=== PATIENT | male | born 1980 | race Caucasian/White ===

== ENCOUNTER 2017-09-27 14:24 | Inpatient (IN) | payer OTHER ==
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
[2017-09-27] MEDS ORDERED: LORazepam 2 MG/ML INJ IVP ONE (14:42)
[2017-09-27] MEDS ORDERED: LORazepam 2 MG/ML INJ ONE (14:42)
--- NOTE | 2017-09-27 15:34 | ASMTCAGE ---
CAGE Do you feel you ought to Answers: No cut down on your drinking or drug use? Do people annoy you by Answers: No criticizing your drinking or drug use? Do you feel guilty about Answers: No your drinking or drug use? 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 Additional Comments Pt reports only drinking "an occasional beer," pt denies marijuana and/or recreational drug use. Date Signed: 09/27/2017 03:33 PM Electronically Signed By:Janice Wyatt RN
[2017-09-27] MEDS ORDERED: fentaNYL 100 MCG/2 ML INJ IVP ONE (15:36)
[2017-09-27] MEDS ORDERED: fentaNYL 100 MCG/2 ML INJ ONE (15:36)
[2017-09-27] MEDS ORDERED: NS 500 ML IV ONE (15:56)
[2017-09-27] MEDS ORDERED: ONDANSETRON 4 MG/2 ML VIAL IVP ONE (15:56)
[2017-09-27 17:15] LABS: PLATELET COUNT 286 10^3/uL (150-400)
[2017-09-27 17:23] LABS: INR 1.11 (0.83-1.16); PROTIME(PATIENT) 14.5 SEC (12.0-15.0)
[2017-09-27] MEDS: HYDROmorphONE/DILAUDID 2 MG/ML INJ IVP ONE ×2 (17:40→20:03)
[2017-09-27] MEDS ORDERED: HYDROmorphONE/DILAUDID 1 MG/ML INJ IVP PRN (17:52)
[2017-09-27] MEDS ORDERED: ONDANSETRON DISINTEGRATING 4 MG TAB PO PRN (17:52)
[2017-09-27] MEDS ORDERED: ceFAZolin 2 GM in NS 100 ML IV ONE (17:56)
[2017-09-27] MEDS ORDERED: methylPREDNISolone SOD SUCC 125 MG/2 ML VIAL IVP ONE (18:26)
[2017-09-27] MEDS ORDERED: GABAPENTIN 300 MG CAP ONE (18:36)
[2017-09-27] MEDS: GABAPENTIN 300 MG CAP PO SCH ×2 (18:37→23:07)
[2017-09-27] MEDS: HYDROCODONE/APAP 5/325 TAB PO PRN (18:44)
[2017-09-27] MEDS ORDERED: ceFAZolin 2 GM/SWFI 2 GM/20 ML SYR IVP ONE (18:45)
[2017-09-27] MEDS ORDERED: DIAZEPAM 5 MG/ML 1 ML SYR ONE (19:58)
[2017-09-27] MEDS ORDERED: HYDROmorphONE/DILAUDID 2 MG/ML INJ ONE ×2 (19:58→21:21)
[2017-09-27] MEDS ORDERED: DIAZEPAM 5 MG/ML 1 ML SYR IVP ONE (20:01)
[2017-09-27] MEDS ORDERED: HYDROmorphONE/DILAUDID 1 MG/ML INJ IVP ONE ×2 (20:01→22:00)
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
[2017-09-27] MEDS ORDERED: HYDROmorphONE/DILAUDID 2 MG/ML INJ IVP ONE ×2 (22:15→22:30)
[2017-09-27] MEDS: oxyCODONE IR 5 MG TAB PO PRN (23:07)
[2017-09-27] MEDS: DIAZEPAM 5 MG TAB PO PRN (23:07)
[2017-09-27] MEDS: BACITRACIN ZINC 14.2 GM OINTTUBE TP SCH (23:07)
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
[2017-09-28] MEDS: HYDROCODONE/APAP 5/325 TAB PO PRN ×2 (00:32→07:35)
[2017-09-28] MEDS: oxyCODONE IR 5 MG TAB PO PRN ×7 (02:47→22:15)
[2017-09-28] MEDS: DIAZEPAM 5 MG TAB PO PRN ×5 (02:47→22:15)
[2017-09-28] MEDS: HYDROmorphone HCL/NS 0.5 MG/ML SYR IVP PRN ×3 (02:52→14:09)
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
[2017-09-28] MEDS: GABAPENTIN 300 MG CAP PO SCH ×3 (07:35→22:15)
[2017-09-28] MEDS: CHLORHEXIDINE GLUCONATE 15 ML UDL PO SCH ×2 (07:36→20:01)
[2017-09-28] MEDS ORDERED: MAGNESIUM HYDROXIDE 30 ML UDCUP PO PRN (08:08)
[2017-09-28] MEDS ORDERED: BISACODYL 10 MG SUPP PR PRN (08:08)
[2017-09-28] MEDS ORDERED: POLYETHYLENE GLYCOL 3350 17 GM PKT PO PRN (08:08)
[2017-09-28] MEDS ORDERED: DEXAMETHASONE 10 MG/ML VIAL IVP ONE (08:23)
[2017-09-28] MEDS: BACITRACIN ZINC 14.2 GM OINTTUBE TP SCH ×2 (08:56→20:01)
[2017-09-28] MEDS: SENNOSIDES/DOCUSATE SODIUM TAB PO SCH ×2 (09:35→20:01)
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
[2017-09-28] MEDS ORDERED: HYDROmorphONE/DILAUDID 2 MG/ML INJ IVP ONE (11:00)
[2017-09-28] MEDS ORDERED: NALOXONE HCL 0.4 MG/ML INJ IVP PRN (14:12)
[2017-09-28] MEDS: HYDROmorphONE/DILAUDID 6 MG/30 ML PCA IV PRN ×2 (14:42→19:28)
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
[2017-09-29] MEDS: DIAZEPAM 5 MG TAB PO PRN (02:14)
[2017-09-29] MEDS: oxyCODONE IR 5 MG TAB PO PRN ×4 (02:14→12:35)
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
[2017-09-29] MEDS: GABAPENTIN 300 MG CAP PO SCH (09:23)
[2017-09-29] MEDS: SENNOSIDES/DOCUSATE SODIUM TAB PO SCH (09:28)
[2017-09-29] MEDS: CHLORHEXIDINE GLUCONATE 15 ML UDL PO SCH (09:29)
[2017-09-29] MEDS: BACITRACIN ZINC 14.2 GM OINTTUBE TP SCH (09:30)
--- NOTE | 2017-09-29 09:50 | SOAPPROG ---
SOAP Progress Note Assessment/Plan: Assessment: seen today with pa/ vs stable / afebrile/ chest clear/ cor rr/ abd soft, nontender heent intact vision, lacerations and abrasions stable alert, oriented still with burning and weakness both hands 2/2 central cord syndrome wants to go home soon Plan:ns fu out of collar/ plastic fu for sutures 09/29/17 09:46 Objective: Vital Signs Temp Pulse Resp BP Pulse Ox 36.5 C 74 16 128/86 H 98 09/29/17 08:00 09/29/17 08:00 09/29/17 08:00 09/29/17 08:00 09/29/17 08:00 09/28/17 09/29/17 09/30/17 05:59 05:59 05:59 Intake Total 500 1604 Output Total 500 300 Balance 0 1304 PT 14.5 SEC (12.0-15.0) 09/27/17 17:05 INR 1.11 (0.83-1.16) 09/27/17 17:05 ICD10 Worksheet Patient Problems: Problems Problem Status Onset Concussion Acute Facial abrasion Acute Facial laceration Acute Herniation of intervertebral disc at C5-C6 level Acute Intraparenchymal hemorrhage of brain Acute
--- NOTE | 2017-09-29 10:24 | ASMTCMCOM ---
CM Note CM Note Notes: PT/OT rec outpatient, [employer] rec home. Pt medically stable for d/c, no CM d/c needs identified. Date Signed: 09/29/2017 10:23 AM Electronically Signed By:NILESH Romero
[2017-09-29 12:26] VITALS: BP 148/78
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
--- NOTE | 2017-10-02 17:01 | GPN ---
[f rep st] PROCEDURE NOTE DATE OF PROCEDURE: 09/27/2017 PROCEDURE NOTE: The area was re-anesthetized with lidocaine containing adrenaline, and irrigated a 2 nd time. There were pieces of foreign body from what appeared to be his sunglasses that were removed from the wound bed. There was almost complete stripping down to the periosteum of the musculature. The soft tissue was re-suspended back to the periosteum of the infraorbital rim to minimize the risk of ectropion and restore orbicularis function. The soft tissue was suspended using 4-0 Vicryl sutur e. The muscle was repaired using 4-0 Vicryl suture. The skin was then advanced to close a small def ect, approximately 5 mm x 2 cm along the lower eyelid/cheek margin. Good symmetry with contralateral side was obtained. He had bacitracin applied. He was given instructions for ice and elevation. He will follow up in 5 days for suture removal. He was left in the care of the emergency room department for treatment of additional injuries. /[id number]/MODL
== END 2017-09-29 13:48 | disposition home or self-care (01) | DRG 959 ==
LOC: OBSVTOIN 17:37 → F3N 22:19
PROVIDERS: ADMIT Surgery; ATTEND Surgery
PROC: 0CQ1XZZ Repair Lower Lip, External Approach (ICD-10-PCS; principal; 2017-09-27)
PROC: 0KQ10ZZ Repair Facial Muscle, Open Approach (ICD-10-PCS; principal; 2017-09-27)
PROC: 0CQ4XZZ Repair Buccal Mucosa, External Approach (ICD-10-PCS; principal; 2017-09-27)
PROC: 0CQ0XZZ Repair Upper Lip, External Approach (ICD-10-PCS; 2017-09-27)
DX: S06.341A Traumatic hemorrhage of right cerebrum with loss of consciousness of 30 minutes or less, initial encounter (principal); S13.0XXA Traumatic rupture of cervical intervertebral disc, initial encounter; S14.129A Central cord syndrome at unspecified level of cervical spinal cord, initial encounter; S09.12XA Laceration of muscle and tendon of head, initial encounter; S01.512A Laceration without foreign body of oral cavity, initial encounter; S01.511A Laceration without foreign body of lip, initial encounter; S01.111A Laceration without foreign body of right eyelid and periocular area, initial encounter; S50.312A Abrasion of left elbow, initial encounter; S80.811A Abrasion, right lower leg, initial encounter; S80.812A Abrasion, left lower leg, initial encounter; S00.91XA Abrasion of unspecified part of head, initial encounter; E86.9 Volume depletion, unspecified; R40.2411 Glasgow coma scale score 13-15, in the field [EMT or ambulance]; Y93.55 Activity, bike riding; V18.0XXA Pedal cycle driver injured in noncollision transport accident in nontraffic accident, initial encounter; Y92.838 Other recreation area as the place of occurrence of the external cause; Y99.8 Other external cause status; F41.9 Anxiety disorder, unspecified
CPT/HCPCS: 92523-GN; 96374; 97110-GO; 97162-GP; 97165-GO; J0690; J1100; J1170; J2060; J2270; J2405; J2930; J3010; J3360